=== PATIENT | male | born 1995 | race Caucasian/White ===

== ENCOUNTER 2018-04-09 20:27 | Emergency (ER) | payer OTHER ==
[~2018-04-09] VITALS: Ht 177.8 cm; Wt 55.3 kg
[2018-04-09 20:31] VITALS: BP 118/75
== END 2018-04-09 22:16 | disposition left against medical advice (07) ==
LOC: EME 20:27
DX: R22.31 Localized swelling, mass and lump, right upper limb (principal); Z53.21 Procedure and treatment not carried out due to patient leaving prior to being seen by health care provider
CPT/HCPCS: 73130